=== PATIENT | male | born 1950 | race American Indian/Alaskan Native ===

== ENCOUNTER 2018-10-04 07:59 | Emergency (ER) | payer OTHER ==
[2018-10-04 08:07] VITALS: BP 135/83
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
== END 2018-10-04 09:59 | disposition home or self-care (01) ==
LOC: ED 07:59
DX: M79.642 Pain in left hand (principal); M79.641 Pain in right hand; R22.31 Localized swelling, mass and lump, right upper limb; Z79.899 Other long term (current) drug therapy; Z87.891 Personal history of nicotine dependence; Z98.890 Other specified postprocedural states; V89.2XXA Person injured in unspecified motor-vehicle accident, traffic, initial encounter; Y93.89 Activity, other specified; Y92.410 Unspecified street and highway as the place of occurrence of the external cause; Y99.8 Other external cause status
CPT/HCPCS: 29260